=== PATIENT | male | born 1970 | race Caucasian/White ===

== ENCOUNTER 2016-07-12 14:13 | Emergency (ER) | payer OTHER ==
[2016-07-12] MEDS ORDERED: Sodium Chloride 0.9% 1,000 ML ONE (14:56)
[2016-07-12 15:02] LABS: ALT (SGPT) 24 U/L (8-55); AST (SGOT) 18 U/L (5-34); Alkaline Phosphatase 56 U/L (40-150); Anion Gap 18 mmol/L (10-20); BUN (Urea Nitrogen) 20 mg/dL (8.9-20.6); Bilirubin, Total 0.6 mg/dL (0.2-1.2); Calc. Creatinine Clearance 0 mL/min (70-130); Calcium 9.4 mg/dL (7.8-10.44); Carbon Dioxide 18 mmol/L (22-29); Chloride 103 mmol/L (98-107); Estimated GFR-MDRD 51; Globulin 3.2 g/dL (2.4-3.5); Potassium 3.6 mmol/L (3.5-5.1); Protein, Total 7.2 g/dL (6.0-8.3); Sodium 135 mmol/L (136-145)
[2016-07-12 15:04] LABS: #Basophils 0.1 thou/uL (0.0-0.2); #Eosinphils 0.1 thou/uL (0.0-0.7); #Lymphocytes 2.6 thou/uL (1.20-3.40); #Monocytes 0.6 thou/uL (0.11-0.59); #Neutrophils 3.5 thou/uL (1.40-6.50); %Basophils 1.9 % (0.0-1.0); %Lymphocytes 37.4 % (21.0-51.0); %Neutrophils 49.7 % (42.0-75.0); Hemoglobin 16.4 g/dL (14.0-18.0); Mean Corpuscular HGB CONC 32.6 g/dL (32.0-36.0); Mean Corpuscular Hemoglobin 29.2 pg (27.0-31.0); Mean Corpuscular Volume 89.6 fl (80.0-94.0); Mean Platelet Volume 8.1 fL (7.4-10.4); Platelet Count 248 thou/uL (130-400); Red Blood Cell (RBC) Count 5.61 mill/uL (4.70-6.10)
[2016-07-12 15:07] LABS: Glucose 370 mg/dL (70-105)
[2016-07-12] MEDS ORDERED: Metoclopramide HCl 10 MG/2 ML VIAL ONE (15:16)
[2016-07-12] MEDS ORDERED: diphenhydrAMINE HCl 50 MG/ML 1 ML VIAL ONE (15:16)
[2016-07-12 15:34] LABS: Bilirubin Negative (Negative); Blood, Urine Negative (Negative); Clarity Clear (Clear); Glucose, Urine (Dipstick) 500 mg/dL (Negative); Leukocyte Negative (Negative); Nitrite Negative (Negative); Protein, Urine (Dipstick) Negative (Neg-Trace); Urobilinogen 0.2 mg/dL (0.2-1.0)
[2016-07-12 15:36] LABS: Specific Gravity, Urine 1.037 (1.002-1.036)
== END 2016-07-12 16:20 | disposition home or self-care (01) ==
LOC: NAV ERS 14:13
DX: G43.909 Migraine, unspecified, not intractable, without status migrainosus (principal); E11.9 Type 2 diabetes mellitus without complications; E78.2 Mixed hyperlipidemia; I10 Essential (primary) hypertension; F32.9 Major depressive disorder, single episode, unspecified; F41.9 Anxiety disorder, unspecified; Z87.442 Personal history of urinary calculi; Z79.899 Other long term (current) drug therapy
CPT/HCPCS: 36415; 80053; 81003; 85025; 96374; 96375; J1200; J2765; J7050

== ENCOUNTER 2020-02-07 14:12 | Emergency (ER) | payer SELFPAY ==
[2020-02-08 02:01] LABS: SARS-CoV-2 MS2 Positive; SARS-CoV-2 N Gene Positive; SARS-CoV-2 S Gene Positive; SARS-CoV-2 by NAA DETECTED (NotDetected); SARS-CoV-2 orf1ab Positive
== END 2020-02-07 15:10 | disposition home or self-care (01) ==
LOC: NAV ERS 14:12
DX: U07.1 COVID-19 (principal); E78.5 Hyperlipidemia, unspecified; I10 Essential (primary) hypertension; E11.9 Type 2 diabetes mellitus without complications; M10.9 Gout, unspecified
CPT/HCPCS: 87635; 99283; U0003

== ENCOUNTER 2020-02-10 16:47 | Emergency (ER) | payer SELFPAY ==
--- NOTE | 2020-02-10 17:45 | RAD ---
EXAM: Single view of the chest HISTORY: Shortness of breath and fever. Covid positive COMPARISON: 09/17/2019 FINDINGS: Single view of the chest shows a mildly enlarged cardiomediastinal silhouette. Scattered mu ltifocal peripheral infiltrates are seen in the lungs. Degenerative changes are seen in the spine. IMPRESSION: Scattered multifocal peripheral infiltrates are consistent with Covid pneumonia.
[2020-02-10] MEDS ORDERED: Acetaminophen 500 MG TAB ONE ×2 (18:13→18:14)
== END 2020-02-10 18:18 | disposition home or self-care (01) ==
LOC: NAV ERS 16:47
DX: U07.1 COVID-19 (principal); I10 Essential (primary) hypertension; E11.9 Type 2 diabetes mellitus without complications; M10.9 Gout, unspecified; E78.5 Hyperlipidemia, unspecified; Z79.84 Long term (current) use of oral hypoglycemic drugs; Z87.442 Personal history of urinary calculi; Z79.82 Long term (current) use of aspirin; Z79.899 Other long term (current) drug therapy
CPT/HCPCS: 71045

== ENCOUNTER 2021-08-22 20:16 | Emergency (ER) | payer SELFPAY ==
[2021-08-22] MEDS ORDERED: Ondansetron PF 4 MG/2 ML Vial ONE (20:45)
[2021-08-22] MEDS ORDERED: Sodium Chloride 0.9% 1,000 ML ONE (20:45)
[2021-08-22] MEDS ORDERED: Acetaminophen 500 MG TAB ONE (20:45)
[2021-08-22 21:26] LABS: Bilirubin Negative (Negative); Blood, Urine Negative (Negative); Clarity Clear (Clear); Glucose, Urine (Dipstick) >=1000 mg/dL (Negative); Ketone, Urine Negative (Negative); Leukocyte Negative (Negative); Nitrite Negative (Negative); Protein, Urine (Dipstick) Negative (Neg-Trace); Specific Gravity, Urine 1.015 (1.005-1.030); Urobilinogen 0.2 mg/dL (Less than 2); pH, Urine 5.5 (5.0-9.0)
[2021-08-22 21:27] LABS: Base Excess-Venous -2.6 mmol/L (-2.0 to 3.0); Bicarbonate (HCO3v) 21.3 mmol/L (22.0-28.0); CO2 Tension (PvCO2) 33.8 mmHg (42.0-51.0); Chloride 106 mmol/L (98-107); Hemoglobin - Calc 15.5 g/dL (14.0-18.0); Potassium 3.9 mmol/L (3.5-5.1); Sodium 140 mmol/L (138-145); T. Carbon Dioxide 22.3 mmol/L (22.0-28.0); vO2 Saturation-calc 86.6 % (60.0-85.0)
[2021-08-22 21:28] LABS: Calcium, Ionized 1.21 mmol/L (1.15-1.33)
[2021-08-22 21:30] LABS: #Basophils 0.1 thou/uL (0.0-0.2); #Eosinphils 0.2 thou/uL (0.0-0.7); #Lymphocytes 2.1 thou/uL (1.20-3.40); #Monocytes 0.6 thou/uL (0.11-0.59); #Neutrophils 3.6 thou/uL (1.40-6.50); %Basophils 2.2 % (0.0-1.0); %Eosinophils 2.7 % (0.0-10.0); %Lymphocytes 32.1 % (21.0-51.0); %Monocytes 9.3 % (0.0-10.0); %Neutrophils 53.8 % (42.0-75.0); ALT (SGPT) 33 U/L (8-55); AST (SGOT) 19 U/L (5-34); Albumin 4.1 g/dL (3.5-5.0); Alkaline Phosphatase 58 U/L (40-110); Anion Gap 19 mmol/L (10-20); BUN (Urea Nitrogen) 10 mg/dL (8.4-25.7); Bilirubin, Total 0.4 mg/dL (0.2-1.2); Calc. Creatinine Clearance 0 mL/min (70-130); Calcium 9.5 mg/dL (7.8-10.44); Carbon Dioxide 19 mmol/L (22-29); Chloride 103 mmol/L (98-107); Estimated GFR 58; Globulin 2.7 g/dL (2.4-3.5); Glucose 386 mg/dL (70-105); Hemoglobin 15.7 g/dL (14.0-18.0); Lipase 54 U/L (8-78); Mean Corpuscular HGB CONC 33.4 g/dL (32.0-36.0); Mean Corpuscular Hemoglobin 31.6 pg (27.0-31.0); Mean Corpuscular Volume 94.8 fL (78.0-98.0); Mean Platelet Volume 8.1 fL (7.4-10.4); Platelet Count 267 thou/uL (130-400); Potassium 4.1 mmol/L (3.5-5.1); Protein, Total 6.8 g/dL (6.0-8.3); RBC Distribution Width 12.3 % (11.5-14.5); Red Blood Cell (RBC) Count 4.96 mill/uL (4.70-6.10); Sodium 137 mmol/L (136-145); White Blood Cell (WBC) Count 6.6 thou/uL (4.8-10.8)
[2021-08-22] MEDS ORDERED: Sodium Chloride 0.9% 100 ML ONE (22:46)
[2021-08-22] MEDS ORDERED: diphenhydrAMINE 50 MG/ML VIAL ONE (22:46)
[2021-08-22] MEDS ORDERED: Prochlorperazine 10 MG/2 ML VIAL ONE (22:46)
== END 2021-08-22 23:20 | disposition home or self-care (01) ==
LOC: NAV ERS 20:16
DX: E11.65 Type 2 diabetes mellitus with hyperglycemia (principal); I10 Essential (primary) hypertension; Z20.822 Contact with and (suspected) exposure to COVID-19; E78.5 Hyperlipidemia, unspecified; Z79.84 Long term (current) use of oral hypoglycemic drugs; Z79.899 Other long term (current) drug therapy
CPT/HCPCS: 36416; 71045; 80053; 81003; 82330; 82435; 82803; 83690; 84132; 84295; 84484; 85014; 85025; 93005; 96361; 96374; 96375; J0780; J1200; J2405; J7050; U0003; U0005

== ENCOUNTER 2021-12-20 18:24 | Emergency (ER) | payer SELFPAY ==
[2021-12-20] MEDS ORDERED: Ketorolac Tromethamine 60 MG/2 ML VIAL ONE (20:30)
[2021-12-20] MEDS ORDERED: traMADol HCl 50 MG TAB ONE (20:30)
== END 2021-12-20 22:18 | disposition home or self-care (01) ==
LOC: NAV ERS 18:24
DX: S29.011A Strain of muscle and tendon of front wall of thorax, initial encounter (principal); I10 Essential (primary) hypertension; E78.5 Hyperlipidemia, unspecified; V86.55XA Driver of 3- or 4- wheeled all-terrain vehicle (ATV) injured in nontraffic accident, initial encounter; Z79.84 Long term (current) use of oral hypoglycemic drugs; Z79.82 Long term (current) use of aspirin; Z79.899 Other long term (current) drug therapy
CPT/HCPCS: 96372; J1885

== ENCOUNTER 2023-05-04 12:56 | Emergency (ER) | payer SELFPAY ==
[2023-05-04] MEDS ORDERED: Aspirin Chewable 81 MG TAB ONE (13:19)
[2023-05-04 13:28] LABS: #Basophils 0.1 thou/uL (0.0-0.2); #Eosinphils 0.2 thou/uL (0.0-0.7); #Lymphocytes 2.1 thou/uL (1.20-3.40); #Monocytes 0.7 thou/uL (0.11-0.59); #Neutrophils 4.7 thou/uL (1.40-6.50); %Basophils 1.5 % (0.0-1.0); %Eosinophils 2.7 % (0.0-10.0); %Lymphocytes 26.3 % (21.0-51.0); %Monocytes 9.3 % (0.0-10.0); %Neutrophils 60.3 % (42.0-75.0); Hematocrit 48.8 % (42.0-52.0); Hemoglobin 16.2 g/dL (14.0-18.0); Mean Corpuscular HGB CONC 33.2 g/dL (32.0-36.0); Mean Corpuscular Hemoglobin 30.5 pg (27.0-31.0); Mean Corpuscular Volume 91.8 fl (78.0-98.0); Platelet Count 273 10x3/uL (130-400); RBC Distribution Width 12.2 % (11.5-14.5); Red Blood Cell (RBC) Count 5.32 mill/uL (4.70-6.10); White Blood Cell (WBC) Count 7.8 10x3/uL (4.8-10.8)
[2023-05-04 13:37] LABS: ALT (SGPT) 19 U/L (8-55); AST (SGOT) 11 U/L (5-34); Albumin 4.2 g/dL (3.5-5.0); Alkaline Phosphatase 81 U/L (40-110); Anion Gap 19 mmol/L (10-20); BUN (Urea Nitrogen) 15 mg/dL (8.4-25.7); Bilirubin, Total 0.6 mg/dL (0.2-1.2); Calc. Creatinine Clearance 0 mL/min (70-130); Calcium 9.7 mg/dL (7.8-10.44); Carbon Dioxide 20 mmol/L (22-29); Chloride 94 mmol/L (98-107); Estimated GFR 54; Globulin 2.9 g/dL (2.4-3.5); Lipase 48 U/L (8-78); Potassium 4.1 mmol/L (3.5-5.1); Protein, Total 7.1 g/dL (6.0-8.3); Sodium 129 mmol/L (136-145)
[2023-05-04 13:40] LABS: Troponin I 0.024 ng/mL (< 0.028)
[2023-05-04 13:48] LABS: Critical Call Chemistry LOYD@1349.NW; Glucose 643 mg/dL (70-105)
[2023-05-04] MEDS ORDERED: Insulin Regular 300 UNITS/3 ML VIAL ONE (13:54)
[2023-05-04] MEDS ORDERED: Sodium Chloride 0.9% 1,000 ML ONE (14:45)
== END 2023-05-04 16:21 | disposition home or self-care (01) ==
LOC: NAV ERS 12:56
DX: R07.89 Other chest pain (principal); E86.0 Dehydration; E11.9 Type 2 diabetes mellitus without complications; I10 Essential (primary) hypertension; Z79.899 Other long term (current) drug therapy; Z79.82 Long term (current) use of aspirin; Z79.84 Long term (current) use of oral hypoglycemic drugs
CPT/HCPCS: 36416; 71045; 80053; 83690; 84484; 85025; 85379; 93005; 96360; J1815; J7050

== ENCOUNTER 2023-10-16 19:30 | Emergency (ER) | payer SELFPAY ==
[2023-10-16] MEDS ORDERED: Dexamethasone 4 mg/ml Vial ONE (19:54)
[2023-10-16] MEDS ORDERED: Meclizine HCl 25 MG TAB ONE (19:55)
[2023-10-16] MEDS ORDERED: Lorazepam 2 MG/ML VIAL ONE (19:55)
[2023-10-16] MEDS ORDERED: Ondansetron PF 4 MG/2 ML Vial ONE (19:55)
[2023-10-16] MEDS ORDERED: Sodium Chloride 0.9% 1,000 ML ONE ×2 (19:55→20:34)
[2023-10-16 19:58] LABS: #Basophils 0.1 thou/uL (0.0-0.2); #Eosinphils 0.1 thou/uL (0.0-0.7); #Lymphocytes 1.4 thou/uL (1.20-3.40); #Monocytes 0.6 thou/uL (0.11-0.59); #Neutrophils 3.4 thou/uL (1.40-6.50); %Basophils 1.3 % (0.0-1.0); %Eosinophils 2.3 % (0.0-10.0); %Lymphocytes 25.3 % (21.0-51.0); %Neutrophils 61.1 % (42.0-75.0); Hematocrit 48.7 % (42.0-52.0); Hemoglobin 15.3 g/dL (14.0-18.0); Mean Corpuscular HGB CONC 31.4 g/dL (32.0-36.0); Mean Corpuscular Hemoglobin 28.8 pg (27.0-31.0); Mean Corpuscular Volume 91.7 fl (78.0-98.0); Mean Platelet Volume 7.2 fL (7.4-10.4); Platelet Count 217 10x3/uL (130-400); RBC Distribution Width 12.2 % (11.5-14.5); Red Blood Cell (RBC) Count 5.31 mill/uL (4.70-6.10); White Blood Cell (WBC) Count 5.5 10x3/uL (4.8-10.8)
[2023-10-16 20:18] LABS: ALT (SGPT) 20 U/L (8-55); AST (SGOT) 10 U/L (5-34); Albumin 3.7 g/dL (3.5-5.0); Alkaline Phosphatase 75 U/L (40-110); Anion Gap 21 mmol/L (10-20); BUN (Urea Nitrogen) 8 mg/dL (8.4-25.7); Bilirubin, Total 0.4 mg/dL (0.2-1.2); CK (CPK) 54 U/L (30-200); Calc. Creatinine Clearance 0 mL/min (70-130); Calcium 9.1 mg/dL (7.8-10.44); Carbon Dioxide 18 mmol/L (22-29); Chloride 94 mmol/L (98-107); Estimated GFR 49; Lipase 47 U/L (8-78); Potassium 4.1 mmol/L (3.5-5.1); Protein, Total 6.7 g/dL (6.0-8.3); Sodium 129 mmol/L (136-145); Troponin I Less than 0.010 ng/mL (< 0.028)
[2023-10-16 20:20] LABS: Bilirubin Negative (Negative); Blood, Urine Negative (Negative); Clarity Clear (Clear); Glucose, Urine (Dipstick) >=1000 mg/dL (Negative); Ketone, Urine Negative (Negative); Leukocyte Negative (Negative); Nitrite Negative (Negative); Protein, Urine (Dipstick) Negative (Neg-Trace); Urobilinogen 0.2 mg/dL (Less than 2); pH, Urine 5.5 (5.0-9.0)
[2023-10-16 20:21] LABS: Specific Gravity, Urine 1.002 (1.002-1.036)
[2023-10-16 20:23] LABS: Glucose 838 mg/dL (70-105)
[2023-10-16] MEDS ORDERED: Insulin Regular, Human 100 UNIT/ML 10 ML VIAL ONE (20:34)
[2023-10-16] MEDS ORDERED: INSULIN REGULAR IN 0.9 % NACL 100 ML ONE (20:38)
[2023-10-16 20:59] LABS: Base Excess-Venous -3.9 mmol/L (-2.0 to 3.0); Bicarbonate (HCO3v) 19.7 mmol/L (22.0-28.0); CO2 Tension (PvCO2) 31.4 mmHg (42.0-51.0); Calcium, Ionized 1.16 mmol/L (1.15-1.33); Chloride 96 mmol/L (98-107); Hemoglobin - Calc 14.7 g/dL (14.0-18.0); Sodium 130 mmol/L (138-145); T. Carbon Dioxide 20.7 mmol/L (22.0-28.0); vO2 Saturation-calc 92.2 % (60.0-85.0)
[2023-10-16 21:40] LABS: SARS-CoV-2 E Target Negative; SARS-CoV-2 N2 Target Negative; SARS-CoV-2 NAA Rapid Test Not Detected (NotDetected); SARS-CoV-2 RdRP gene Negative
[2023-10-16 21:57] LABS: Anion Gap 17 mmol/L (10-20); BUN (Urea Nitrogen) 8 mg/dL (8.4-25.7); Calc. Creatinine Clearance 0 mL/min (70-130); Calcium 8.7 mg/dL (7.8-10.44); Carbon Dioxide 20 mmol/L (22-29); Chloride 101 mmol/L (98-107); Estimated GFR 65; Sodium 134 mmol/L (136-145)
[2023-10-16 22:02] LABS: Critical Call Chemistry NUR.RYE@2204; Glucose 540 mg/dL (70-105)
== END 2023-10-16 22:52 | disposition short-term general hospital (02) ==
LOC: NAV ERS 19:30
DX: R19.7 Diarrhea, unspecified (principal); R42 Dizziness and giddiness; E11.65 Type 2 diabetes mellitus with hyperglycemia; I10 Essential (primary) hypertension; Z79.84 Long term (current) use of oral hypoglycemic drugs; Z79.899 Other long term (current) drug therapy
CPT/HCPCS: 36415; 70450; 80053; 81001; 82010; 82330; 82550; 82803; 83690; 84484; 85025; 87324; 87328; 87329; 87449; 93005; 96365; 96366; 96375; J1100; J1815; J2060; J2405; J7030; U0002

== ENCOUNTER 2024-05-30 22:47 | Emergency (ER) | payer SELFPAY ==
[2024-05-30] MEDS ORDERED: traMADol HCl 50 MG TAB ONE (23:11)
[2024-05-30] MEDS ORDERED: Ketorolac Tromethamine 60 MG/2 ML VIAL ONE (23:11)
== END 2024-05-31 00:38 | disposition home or self-care (01) ==
LOC: NAV ERS 22:47
DX: S83.422A Sprain of lateral collateral ligament of left knee, initial encounter (principal); I10 Essential (primary) hypertension; E11.9 Type 2 diabetes mellitus without complications; Z79.899 Other long term (current) drug therapy; Z79.84 Long term (current) use of oral hypoglycemic drugs; V80.010A Animal-rider injured by fall from or being thrown from horse in noncollision accident, initial encounter
CPT/HCPCS: 96372; 99283; J1885